=== PATIENT | male | born 1975 | race Caucasian/White ===

== ENCOUNTER → 2017-10-19 | Outpatient (CLI) | payer BC ==
--- NOTE | 2017-10-19 23:25 | MR ---
EXAMINATION TYPE: MR ankle RT wo/w con DATE OF EXAM: 10/19/2017 COMPARISON: NONE HISTORY: Effusion, right ankle / Ankle swelling CONTRAST: Standard multiplanar, multisequence MRI departmental protocol utilizing 9 mL intravenous Gadavist candace olinium contrast. FINDINGS: On the T2 images there is diffuse abnormal increased signal in the anterior talus extending to a small extent into the posterior talus. There is sparing of the dome of the talus. There is tanya lar change in the anterior calcaneus. There is small ankle joint effusion. There is diffuse edema in the navicular bone. I see no fracture line. Cuneiform bones and cuboidal bone have fairly normal sign al pattern. The Achilles tendon is intact. There is small spur on the posterior calcaneus. Plantar fascia appears normal. The medial and lateral flexor tendons of the ankle appear intact. The collateral ligaments a re intact. Ankle joint space is fairly normal. Extensor tendons appear intact. IMPRESSION: Diffuse edema in the talus, anterior calcaneus and the navicular consistent with signific ant bone bruise. No fracture line seen. No evidence of ligament or tendon tear. Ankle joint effusion.
== END | disposition home or self-care (01) ==
LOC: RADMRIMAIN 17:29
PROVIDERS: ATTEND Physician Assistant Medical
DX: M25.471 Effusion, right ankle (principal)
CPT/HCPCS: 73723; A9577